=== PATIENT | male | born 1985 | race Hispanic/Latino ===

== ENCOUNTER 2018-10-28 21:30 | Emergency (ER) | payer OTHER ==
[2018-10-28] MEDS ORDERED: KETOROLAC TROMETHAMINE 60 MG/2 ML VIAL ONE (22:49)
== END 2018-10-28 23:24 | disposition home or self-care (01) ==
LOC: EDH 21:30
DX: K02.9 Dental caries, unspecified (principal)
CPT/HCPCS: 96372; 99283; J1885